=== PATIENT | female | born 1935 | race Caucasian/White ===

== ENCOUNTER → 2021-05-03 | Day surgery (SDC) | payer MEDICARE, OTHER ==
[~2021-05-03] VITALS: Ht 152.4 cm; Wt 65.8 kg
[~2021-05-03] MED LIST: ALLERGY RELIE15.8 ML; ASCORBIC ACID500 MG PO; IODINE STRONG PO; MULTI FOR HER1 EAC2 PO; NORCO 5-325 TA1 EACH PO; QUERCETIN PO; RED YEAST RICE600 M1 PO; ROPINIROLE HCL2 MG PO; SYNTHROID75 MCG PO; VITAMIN D310 MCG PO; VITAMIN E400 UNI6 PO; ZINC50 M1 PO
== END | disposition home or self-care (01) ==
LOC: FAS 07:49
DX: C78.6 Secondary malignant neoplasm of retroperitoneum and peritoneum (principal); C80.1 Malignant (primary) neoplasm, unspecified; R18.0 Malignant ascites; K42.9 Umbilical hernia without obstruction or gangrene; Z90.49 Acquired absence of other specified parts of digestive tract; Z88.2 Allergy status to sulfonamides; Z88.6 Allergy status to analgesic agent; Z96.659 Presence of unspecified artificial knee joint; R94.31 Abnormal electrocardiogram [ECG] [EKG]
CPT/HCPCS: 93005; J0690; J1100; J2405; J2704; J2710; J3010; J7120